=== PATIENT | male | born 1985 | race Caucasian/White ===

== ENCOUNTER 2022-07-06 18:13 | Emergency (ER) | payer OTHER, SELFPAY ==
[2022-07-06 18:16] VITALS: BP 158/100; PULSE 70; RESP 20; TEMP 36.3; O2SAT 99; BMI 29.8
--- NOTE | 2022-07-06 18:40 | CRLHL7_ITS ---
For Patients: As a result of the Cures Act, medical imaging exams and procedure reports are released immediately into your electronic medical record. You may view this report before your referring provider. If you have questions, please contact your health care provider. INDICATION: Chest pain. TECHNIQUE: Chest 2 views. COMPARISON: None. FINDINGS: Lungs: Clear lungs. No consolidation. Pleura: No pleural effusion or pneumothorax. Heart and Mediastinum: The cardiomediastinal silhouette is normal. The vessels are unremarkable. Bones: Unremarkable. IMPRESSION: No acute cardiopulmonary disease. Dictated by Miguel Delvalle MD @ 07/06/2022 7:26:18 PM (Electronically Signed)
--- NOTE | 2022-07-06 18:51 | ED.CHESTPAIN ---
HPI - Chest Pain General Date Seen: 07/06/22 Chief Complaint: Chest Pain Stated Complaint: Chest and Abdominal pain Time Seen by Provider: 07/06/22 18:29 Source: patient Mode of arrival: ambulatory Limitations: no limitations History of Present Illness HPI narrative: Patient is a 36-year-old gentleman who presents here with chest pain initially went to Urgent Care was triaged over to here, he has had the pain now on off for the past week and half, he says he notices it when he is actually not doing anything, he may have it when he is exerting himself he just does not notice it, he describes as a dull sensation in his chest area, he has also had abdominal issues he said during this time period, which is not uncommon for him. He has a history of hemorrhoids and has had a couple bowel movements worries had a little blood within it. Denies any fevers chills or sweats associated with this there is no radiation of his discomfort he feels his chest pain just sub externally. There is no coughing, splinting, pleuritic type discomfort associated with this he has had no leg swelling. Eating does nothing for this, he did try some antacids but did not really work at all he has been using some ibuprofen for the last couple days because his told him that that should help. Does smoke irregularly, no history of any illicit drug use, no history of premature coronary artery disease in the family, denies a history of hypertension diabetes or hyperlipidemia. Treatment prior to arrival: none Risk Factors Coronary artery disease risk factors: smoking history Thoracic aortic dissection risk factors: none Related Data Home Medications Medication Instructions Recorded Confirmed No Known Home Medications 07/06/22 07/06/22 Allergies Allergy/AdvReac Type Severity Reaction Status Date / Time No Known Drug Allergies Allergy Verified 07/06/22 18:21 Review of Systems Status of ROS Reports: 10 or more systems reviewed and unremarkable except as noted in History and below PFSH PFS Social History Smoking Status: Former smoker What tobacco products do you use: cigarettes Smoking quit date/years: <= 15 years ago Do you use any of these nicotine containing products: None Second hand tobacco smoke exposure: No How often do you have a drink containing alcohol: 2-3 times a week How many standard drinks containing alcohol do you have on a typical day: 5 or 6 How often do you have six or more drinks on one occasion: Monthly AUDIT-C Alcohol total score: 7 Non-prescribed substance use: denies use Exam Narrative Exam Narrative: Patient is seen in room 2 he is in no apparent distress his pupils are equal round reactive to light there is no scleral icterus redness TMs bilaterally are normal oropharynx is normal, neck is supple full range of motion, JVP is flat with normal carotid upstrokes, cranial nerves 3-12 are otherwise normal. Chest is clear bilaterally with easy respirations there is no splinting, no extra sounds, cardiac exam shows normal S1-S2 there is no S3-S4 clicks murmurs or gallops his abdomen is soft and slightly obese there is no guarding no organomegaly, no hernias, bowel sounds are normal, no CVA tenderness, moves all extremities independently and well with normal pulses in his lower extremities, no edema, negative Homans sign. Neurologically moves his extremities well, symmetrical strength, and normal proximal distal strength skin reveals no petechiae rashes Const Vital Signs, click to edit/add: Vital Signs - 24 hr 07/06/22 18:16 07/06/22 21:00 Temperature 97.3 F L Pulse Rate [Left Pulse Oximeter] 70 63 Respiratory Rate 20 16 Blood Pressure [Right Upper Arm] 158/100 H 112/99 H Pulse Oximetry 99 97 Oxygen Delivery Method Room Air Room Air Documenting provider has reviewed patient's vital signs: yes Course Course Hospital Course: Second troponin is normal his EKG shows no acute changes, his pain remained the same, I do think that this is related to likely GE reflux he tells me is a history of the reflux in the past but does not quite remember it being like this. Take my suspicion of cardiac cause is low although not 0, but given the above testing that we have done I think home use of omeprazole and follow-up with primary care is reasonable. Vital Signs Vital signs: Initial Vital Signs Temperature 97.3 F L 07/06/22 18:16 Temperature Source Temporal Artery Scan 07/06/22 18:16 Pulse Rate 70 07/06/22 18:16 Pulse Rhythm 07/06/22 18:16 Pulse Strength 3+ Normal 07/06/22 18:16 Respiratory Rate 20 07/06/22 18:16 Blood Pressure 158/100 H 07/06/22 18:16 Blood Pressure Mean 119 07/06/22 18:16 Blood Pressure Position Sitting 07/06/22 18:16 Pulse Oximetry 99 07/06/22 18:16 Oxygen Delivery Method 07/06/22 18:16 Vital Signs Temperature 97.3 F L 07/06/22 18:16 Pulse Rate 70 07/06/22 18:16 Respiratory Rate 20 07/06/22 18:16 Blood Pressure 158/100 H 07/06/22 18:16 Pulse Oximetry 99 07/06/22 18:16 Oxygen Delivery Method 07/06/22 18:16 Temperature 97.3 F L 07/06/22 18:16 Pulse Rate 63 07/06/22 21:00 Respiratory Rate 16 07/06/22 21:00 Blood Pressure 112/99 H 07/06/22 21:00 Pulse Oximetry 97 07/06/22 21:00 Oxygen Delivery Method 07/06/22 21:00 MDM - Chest Pain MDM Narrative Medical decision making narrative: During the evaluation of this patient I considered multiple differential diagnosis is. The life-threatening differential diagnosis include coronary disease/WV, pulmonary embolism, pneumothorax, pneumonia, and aortic dissection. Other differential diagnosis included but were not limited to pericarditis, myocarditis, chest wall pain, GERD, esophageal rupture, rib fracture contusion, pleurisy, as well as other etiologies. Medical Records Data Attestation: I reviewed the patient's medical records. Lab Data Attestation: I reviewed the patient's lab results. Labs: Lab Results 07/06/22 07/06/22 07/06/22 Range/Units 18:55 18:55 18:55 WBC 7.62 (4.50-11.00) K/uL RBC 5.38 (4.30-5.90) m/uL Hgb 15.5 (13.5-17.5) gm/dL Hct 45.6 (37.0-53.0) % MCV 85 (80-100) fL MCH 29 (26-34) pg MCHC 34 (32-36) gm/dL RDW Coeff of Jesse 12.9 (11.5-15.5) % Plt Count 230 (140-440) K/uL Neut % (Auto) 63.0 (42.0-72.0) % Lymph % (Auto) 26.6 (20-44) % [place] % (Auto) 5.2 (0.0-11.0) % Eos % (Auto) 4.2 (0.0-7.0) % Baso % (Auto) 0.7 (0.0-3.0) % Neut # (Auto) 4.80 (1.7-7.0) K/uL Lymph # (Auto) 2.03 (0.90-2.90) K/uL [place] # (Auto) 0.40 (0.00-0.90) K/UL Eos # (Auto) 0.32 (0.00-0.50) K/uL Baso # (Auto) 0.05 (0.00-0.30) K/uL Abs Immat Gran (auto) 0.02 (0.00-0.30) K/uL INR 0.97 (0.91-1.10) APTT 31 (23-33) Seconds D-Dimer Quant (PE/DVT) 0.24 (0.00-0.50) ug/ml Sodium (135-149) mmol/L Potassium (3.6-5.1) mmol/L Chloride (96-114) mmol/L Carbon Dioxide (20-32) mmol/L BUN (5-24) mg/dL Creatinine (0.5-1.5) mg/dL Estimated Creat Clear Estimated GFR ml/min Glucose (60-115) mg/dL Calcium (8.4-10.6) mg/dL Total Bilirubin (0.1-1.5) mg/dL Direct Bilirubin (0.0-0.5) mg/dL AST (12-35) U/L ALT (4-50) U/L Alkaline Phosphatase (40-150) U/L NT-Pro-B Natriuret Pep (0-125) PG/mL Total Protein (6.0-8.3) g/dL Albumin (3.3-5.0) g/dL Amylase (18-89) U/L Lipase (23-300) U/L POC Troponin I (0.01-0.04) ng/ml 07/06/22 07/06/22 07/06/22 Range/Units 18:55 18:55 21:00 WBC (4.50-11.00) K/uL RBC (4.30-5.90) m/uL Hgb (13.5-17.5) gm/dL Hct (37.0-53.0) % MCV (80-100) fL MCH (26-34) pg MCHC (32-36) gm/dL RDW Coeff of Jesse (11.5-15.5) % Plt Count (140-440) K/uL Neut % (Auto) (42.0-72.0) % Lymph % (Auto) (20-44) % [place] % (Auto) (0.0-11.0) % Eos % (Auto) (0.0-7.0) % Baso % (Auto) (0.0-3.0) % Neut # (Auto) (1.7-7.0) K/uL Lymph # (Auto) (0.90-2.90) K/uL [place] # (Auto) (0.00-0.90) K/UL Eos # (Auto) (0.00-0.50) K/uL Baso # (Auto) (0.00-0.30) K/uL Abs Immat Gran (auto) (0.00-0.30) K/uL INR (0.91-1.10) APTT (23-33) Seconds D-Dimer Quant (PE/DVT) (0.00-0.50) ug/ml Sodium 138 (135-149) mmol/L Potassium 4.0 (3.6-5.1) mmol/L Chloride 103 (96-114) mmol/L Carbon Dioxide 26 (20-32) mmol/L BUN 17 (5-24) mg/dL Creatinine 0.9 (0.5-1.5) mg/dL Estimated Creat Clear 124.54 Estimated GFR 114 ml/min Glucose 90 (60-115) mg/dL Calcium 9.1 (8.4-10.6) mg/dL Total Bilirubin 0.5 (0.1-1.5) mg/dL Direct Bilirubin 0.1 (0.0-0.5) mg/dL AST 33 (12-35) U/L ALT 32 (4-50) U/L Alkaline Phosphatase 71 (40-150) U/L NT-Pro-B Natriuret Pep 54 (0-125) PG/mL Total Protein 7.3 (6.0-8.3) g/dL Albumin 4.7 (3.3-5.0) g/dL Amylase 114 H (18-89) U/L Lipase 145 (23-300) U/L POC Troponin I 0.00 L 0.00 L (0.01-0.04) ng/ml Imaging Data Chest x-ray: Attestation: I have reviewed the pertinent imaging results. Radiologist's impression: Patient: ADALID TALAVERA Facility: [facility] Site . Site : 1985 Study: XRay Chest 2 view-07/06/2022 7:16:47 PM Ordering Physician: Cherelle Coto Final Report: INDICATION: Chest pain. TECHNIQUE: Chest 2 views. COMPARISON: None. FINDINGS: Lungs: Clear lungs. No consolidation. Pleura: No pleural effusion or pneumothorax. Heart and Mediastinum: The cardiomediastinal silhouette is normal. The vessels are unremarkable. Bones: Unremarkable. IMPRESSION: No acute cardiopulmonary disease. Dictated by Miguel Delvalle MD @ 07/06/2022 7:26:18 PM (Electronic Signature) ECG Data Attestation: I personally reviewed and interpreted this ECG as follows: ECG interpretation date: 07/06/22 Prior ECG tracings: not available for review Interpretation: EKG shows normal sinus rhythm with incomplete right bundle-branch block, sinus rhythm at 64, no acute ST wave changes. Discharge Plan Discharge Clinical Impression: Chest pain Patient Disposition: Home, Self-Care Condition: Stable Instructions: Chest Pain (ED) Additional Instructions: Home rest reassurance given, follow-up with primary care if ongoing symptoms I would suggest a stress test, but I really truly think this is more likely GI, omeprazole 20 mg a day also known as Prilosec is [id number], please take this for the next 4 weeks. Return here if increasing chest pain shortness of breath or other symptoms Prescriptions: No Action No Known Home Medications Follow Up/Referrals: Ruy Julien MD [Primary Care Provider] - Stand Alone Forms: [employer] Info Instructions
[2022-07-06 19:04] LABS: Basophils Absolute Auto 0.05 K/uL (0.00-0.30); Basophils Percent Auto 0.7 % (0.0-3.0); Eosinophils Absolute Auto 0.32 K/uL (0.00-0.50); Eosinophils Percent Auto 4.2 % (0.0-7.0); Hematocrit 45.6 % (37.0-53.0); Hemoglobin* 15.5 gm/dL (13.5-17.5); Immature Granulocytes Abs Auto 0.02 K/uL (0.00-0.30); Lymphocytes Absolute Auto 2.03 K/uL (0.90-2.90); Lymphocytes Percent Auto 26.6 % (20-44); Mean Corpuscular HGB Conc 34 gm/dL (32-36); Mean Corpuscular Hemoglobin 29 pg (26-34); Mean Corpuscular Volume 85 fL (80-100); Monocytes Percent Auto 5.2 % (0.0-11.0); Platelet Count* 230 K/uL (140-440); RDW Coefficient of Variation % 12.9 % (11.5-15.5); Red Blood Count 5.38 m/uL (4.30-5.90); White Blood Count* 7.62 K/uL (4.50-11.00)
[2022-07-06 19:08] LABS: Slide Review Reflex No
[2022-07-06] MEDS: ASPIRIN 81 MG TAB.CHEW 324 MG PO (19:10)
[2022-07-06] MEDS: PANTOPRAZOLE SODIUM 40 MG INJ IVP (19:14)
[2022-07-06 19:17] LABS: Albumin* 4.7 g/dL (3.3-5.0); Chloride* 103 mmol/L (96-114); Sodium* 138 mmol/L (135-149)
[2022-07-06 19:19] LABS: Amylase* 114 U/L (18-89)
[2022-07-06 19:20] LABS: Alanine Aminotransferase* 32 U/L (4-50); Alkaline Phosphatase* 71 U/L (40-150); Aspartate Amino Transferase* 33 U/L (12-35); Bilirubin Direct* 0.1 mg/dL (0.0-0.5); Bilirubin Total* 0.5 mg/dL (0.1-1.5); Blood Urea Nitrogen* 17 mg/dL (5-24); Calcium* 9.1 mg/dL (8.4-10.6); Carbon Dioxide* 26 mmol/L (20-32); Creatinine* 0.9 mg/dL (0.5-1.5); Est. Creatinine Clearance* 124.54; Estimated Glomerular Filt Rate 114 ml/min; Glucose* 90 mg/dL (60-115); Lipase* 145 U/L (23-300); Total Protein* 7.3 g/dL (6.0-8.3)
[2022-07-06 19:21] LABS: INR 0.97 (0.91-1.10); Partial Thromboplastin Time* 31 Seconds (23-33); Prothrombin Time 13.5 Seconds
[2022-07-06 19:26] LABS: D Dimer Quantitative* 0.24 ug/ml (0.00-0.50)
[2022-07-06 19:29] LABS: NT Pro B Type NatriureticPept* 54 PG/mL (0-125)
[2022-07-06 21:00] VITALS: BP 112/99; PULSE 63; RESP 16; O2SAT 97
--- NOTE | 2022-07-06 21:15 | ED.NURSE ---
second trop 0.00
== END 2022-07-06 21:21 | disposition home or self-care (01) ==
PROVIDERS: Emergency Provider Family Medicine; PCP Family Medicine
DX: R07.9 Chest pain, unspecified (principal)
CPT/HCPCS: 36415; 71046; 80048; 80076; 82150; 83690; 83880; 85025; 85379; 85610; 85730; 93005; 96374; 99285; A9270; C9113

== ENCOUNTER 2022-07-26 07:49 | Outpatient (CLI) | payer OTHER, SELFPAY ==
--- NOTE | 2022-07-26 08:00 | CRLHL7_ITS ---
For Patients: As a result of the Century Cures Act, medical imaging exams and procedure reports are released immediately into your electronic medical record. You may view this report before your referring provider. If you have questions, please contact your health care provider. Indication: Abdominal pain Technique: Postcontrast CT abdomen and pelvis. 114 cc Isovue 370 intravenous contrast. Please note that all CT scans at this facility use dose modulation, iterative reconstruction, and/or weight-based dosing when appropriate to reduce radiation dose to as low as reasonably achievable. Comparison: None Findings: Lung bases clear. No pleural effusion or infiltrate. Normal liver and gallbladder. Normal spleen and pancreas. Normal adrenal glands and kidneys. Normal ureters. No abdominal or pelvic adenopathy. Bladder normal. No bowel obstruction or free air. No abscess. Appendix normal. Trace pelvic free fluid is present. The small bowel appears normal. No abdominal wall hernia. Physiologic wedging L1. Impression: Trace nonspecific pelvic free fluid. No adjacent inflammatory changes regarding the large or small bowel. This may represent sequela of mild enteritis. Normal terminal ileum and appendix. No evidence of diverticulitis or appendicitis. No evidence of gallbladder disease or renal stone. Please note that all CT scans at this facility use dose modulation, iterative reconstruction, and/or weight-based dosing when appropriate to reduce radiation dose to as low as reasonably achievable. Dictated by Ruy Zurita MD @ 07/26/2022 10:18:30 AM (Electronically Signed)
== END 2022-07-26 07:50 | disposition home or self-care (01) ==
PROVIDERS: PCP Family Medicine; Visit Provider Family Medicine
DX: R10.9 Unspecified abdominal pain (principal)
CPT/HCPCS: 74177; Q9967

== ENCOUNTER 2023-01-16 06:23 | Day surgery (SDC) | payer OTHER, SELFPAY ==
[2023-01-16] VITALS (11 sets, daily range): BP systolic 129–146; BP diastolic 84–98; PULSE 55–70; RESP 14–16; TEMP 36.6; O2SAT 96–100; BMI 30.7
[2023-01-16] MEDS: lidocaine HCL 2 % MULTIDOSE 20 ML VIAL 2.5 ML INJECTION (07:32)
[2023-01-16] MEDS: BUPIVACAINE 0.5 % 10 ML VIAL 2.5 ML INJECTION (07:32)
--- NOTE | 2023-01-16 07:59 | P.ORPRC_ITS ---
Procedure Note Date of procedure: 01/16/23 Procedure: Preop diagnosis: Left wrist dorsal, radial ganglion cyst Postop diagnosis: Left wrist dorsal, radial ganglion cyst Procedure: Ganglion excision Anesthesia: Local Surgeon: Andre Tobias MD certified medical technician assistant: JARRED Bauman EBL: 0 mL Complications: None Specimens: None Drains: None Indications: The patient has a history of a left wrist painful dorsal, radial mass consistent with a ganglion cyst. It appears to be intimately associated with the EPL tendon. Despite appropriate nonoperative management they continue to have symptoms. Operative intervention was offered. The risks, benefits alternatives and expected outcomes were discussed in detail. These included but were not limited to: Infection, bleeding, injury to blood vessel or nerve, venous thromboembolism. All questions were answered to their satisfaction. The patient was placed supine on the operating room table. Local anesthesia was administered. The hand was prepped and draped in usual sterile fashion. The limb was elevated. The forearm pneumatic tourniquet was inflated to 250 mm of mercury. A transverse incision was made over the dorsal, radial aspect of the wrist, centered over the mass. Subcutaneous dissection was taken with the tenotomy scissors to the ganglion. The radial sensory nerve was encountered and retracted ulnarly, protected throughout the case. The ganglion was entered and clear, gelatinous fluid was encountered. It appeared to be emanating from EPL tendons. There were 2 distinct slips of tendon. It was carefully dissected off of the tendons with the tenotomy scissors and was resected in its entirety. The wound was thoroughly inspected and there was not a stalk emanating from the wrist joint. The wound was irrigated with normal saline. It was closed with a 3-0 Stratafix and glue. A dry dressing and short-arm thumb spica splint were applied. Sponge and needle counts were correct x 2. The patient tolerated the procedure well, there were no apparent complications. They were sent to same day surgery in satisfactory condition. Plan: Use of the hand as tolerates. Discontinue the intraoperative dressing on postoperative day 3 and may get the wound wet as tolerates. Follow up in the office in 1-2 weeks for a wound check and suture removal.
== END 2023-01-16 08:18 | disposition home or self-care (01) ==
LOC: OR 06:23
PROVIDERS: PCP Family Medicine; Visit Provider Orthopaedic Surgery
PROC: (CPT 25111; principal; 2023-01-16 07:15)
DX: M67.432 Ganglion, left wrist (principal)
CPT/HCPCS: 25111; A4580; S0020

== ENCOUNTER 2024-02-14 09:00 | Outpatient (RCR) | payer OTHER, SELFPAY | END 2024-04-09 08:01 | disposition home or self-care (01) | PROVIDERS: PCP Family Medicine | DX: S83.231A Complex tear of medial meniscus, current injury, right knee, initial encounter (principal); Z51.89 Encounter for other specified aftercare | CPT/HCPCS: 97110; 97112; 97161; 97530 ==

== ENCOUNTER 2025-07-17 12:52 | Emergency (ER) | payer OTHER, SELFPAY ==
--- OUTSIDE RECORDS SUMMARY | 2025-07-17 12:55 | XMS_ITS | Clinical Summary ---
[facility] Address [address], [place] [address] Care Team Providers Care A And P Mechanic Name Role Phone Clinician, Not Found MD Primary Care Provider Un available Source Comments You are receiving this document as you are listed as the primary care provider,follow-up provider, or the patient has been referred to you for consultation.This is in compliance with the Medicare and[facility] EHR Incentive Program,which states Providers who transition their patient to another setting of careor provider of care or refers their patient to another provider of care shouldprovide summary care record for each transition of care or referral. [facility] [employer] Allergies No known active allergies Medications ibuprofen (MOTRIN) 200 MG tablet Take 2-3 Tablets (400-600 mg) by mouth every 6 hours as needed for Pain. 60 Tablet 1 01/03/2024 Active Active Problems Problem Noted Date Diagnosed Date Obesity, Class I, BMI 30-34.9 12/27/2023 Elevated blood pressure read ing without diagnosis of hypertension 12/27/2023 Complex tear of medial menis cus of right knee as current injury 12/26/2023 Immunizations Immunization Administration Dates Next Due Influenza (Flucelvax), Preserv Free QIV 09/09/20 19 Influenza, Unspecified Formulation 07/12/2013 Moderna Monovalent 12+ 01/14/2021,12/15/2020 Tdap 06/02/2016 Social History Tobacco Use Types Packs/Day Years Used Date Smoking Tobacco: Never Tobacco Cessation:Counseling Given: Not Answered Alcohol Use Standard Drinks/Week Comments Yes 0 (1 standard drink = 0.6 oz pur e alcohol) occ Humiliation, Afraid, Rape, a nd Kick questionnaire Answer Date Recorded Fear of Current or Ex-Partner Not on file Emotionally Abused Not on file 01/03/2024 Within the last year, have y ou been kicked, hit, slapped, or otherwise physically hurt by your partner or ex-partner? Patient unable to answer 01/03/2024 Within the last year, have y ou been raped or forced to have any kind of sexual activity by your partner or ex-partner? Patient unable to answer 01/03/2024 PHQ-2 Answer Date Recorded PHQ-2 Score 0 12/27/2023 Sex and Gender Information Value Date Recorded Sex Assigned at Not on file Legal Sex Male 4:48 AM CDT Gender Identity Not on file Sexual Orientation Not on file Last Filed Vital Signs Vital Sign Reading Time Taken Comments Blood Pressure 132/95 01/03/2024 3:15 PM CDT Pulse 60 01/03/2024 3:23 PM CDT Temperature 36.5 C (97.7 F) 01/03/2024 2:32 PM CDT Respiratory Rate 16 01/03/2024 3:23 PM CDT Oxygen Saturation 96% 01/03/2024 3:23 PM CDT Inhaled Oxygen Concentration - - Weight 108 kg (238 lb) 12/27/2023 9:48 AM CDT Height 180.3 cm (5' 11) 12/27/2023 9:48 AM CDT Body Mass Index 33.19 12/27/2023 9:48 AM CDT Plan of Treatment Health Maintenance Due Date Last Done Comments Hep C Screening (Preventive Services) 1985 HIV Screening (Preventive Services) 2001 Adult Preventive Visit 2003 HepB Vaccine (1) 2004 HPV Vaccine (1 - 3-dose SCDM series) 2012 Cholesterol 2020 COVID-19 Vaccine (3 - 2024-2 6 season) 2025 01/14/2021, 12/15/2020 Influenza Vaccine (#1) 2025 9, 07/12/2013 DTaP/Tdap/Td Vaccine (2 - Tdap) 06/02/2026 06/02/2016 Zoster/Shingles Vaccine (1 o f 2) 2035 HepA Vaccine Aged Out No longer eligi ble based on patient's age to complete this topic Hib Vaccine Aged Out No longer eligi ble based on patient's age to complete this topic IPV (Polio) Vaccine Aged Out No longe r eligible based on patient's age to complete this topic MCV4 Vaccine Aged Out No longer eligi ble based on patient's age to complete this topic Meningococcal B Vaccine Aged Out No l onger eligible based on patient's age to complete this topic Pneumococcal Vaccine Aged Out No long er eligible based on patient's age to complete this topic Insurance SELF INSURED * Guarantor: LUIS ALBERTO TALAVERA Account Type Relation to Patient Date of Phone Billing Address Personal/Family [phone] [facility], [phone] Advance Directives * Full Code (Latest Code Status on File) Date Activated Date Inactivated Comments 01/03/2024 12:56 PM 01/03/2024 5:41 PM Care Teams A And P Mechanic Relationship Specialty Start Date End Date Clinician, Not Found, [place] [address] PCP - General 12/24/23
--- OUTSIDE RECORDS SUMMARY | 2025-07-17 12:55 | XMS_ITS | Encounter Summary ---
Author Organization [facility] Address [address] [address] Care Team Providers Care Electric Motor Tester Assembler Name Role Phone Clinician, Not Found MD Primary Care Provider Un available Encounter Details Date Type Department Care Team (Late st Contact Info) Description 02/27/2025 Notes/Orders [facility] [id number] [place] [address] [place] [id number] [place] [address] Social History Tobacco Use Types Packs/Day Years Used Date Smoking Tobacco: Never Alcohol Use Standard Drinks/Week Comments Yes 0 [...] on file Sexual Orientation Not on file documented as of this encounter Plan of Treatment Not on file documented as of this encounter Visit Diagnoses Not on filedocumented in this encounter Care Teams Electric Motor Tester Assembler Relationship Specialty Start Date End Date Clinician, Not Found, [facility] [place] [address] PCP - General 12/24/23 documented as of this encounter
[2025-07-17 13:07] VITALS: BP 166/108; PULSE 98; RESP 22; TEMP 36.6; O2SAT 99; BMI 31.4
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
[2025-07-17 13:48] LABS: Appearance Urine Clear (Clear)
[2025-07-17 13:54] LABS: Hematocrit* 49.1 % (37.0-53.0); Hemoglobin* 16.6 gm/dL (13.5-17.5); Immature Granulocytes Abs Auto 0.02 K/uL (0.00-0.30); Immature Granulocytes Pct Auto 0.3 %; Mean Corpuscular HGB Conc 34 gm/dL (32-36); Mean Corpuscular Hemoglobin 29 pg (26-34); Mean Corpuscular Volume 85 fL (80-100); RDW Coefficient of Variation % 12.6 % (11.5-15.5); Red Blood Count* 5.80 m/uL (4.30-5.90); White Blood Count* 6.83 K/uL (4.50-11.00)
[2025-07-17 13:55] LABS: Lymphocytes Absolute Auto 1.10 K/uL (0.90-2.90); Slide Review Reflex No
[2025-07-17 14:11] LABS: Albumin* 4.8 g/dL (3.3-5.0)
[2025-07-17 14:12] LABS: Chloride* 100 mmol/L (96-114); Potassium* 4.1 mmol/L (3.6-5.1); Sodium* 140 mmol/L (135-149)
[2025-07-17 14:14] LABS: Alanine Aminotransferase* 37 U/L (4-50); Anion Gap 13 mEq/L (7-15); Aspartate Amino Transferase* 36 U/L (12-35); Blood Urea Nitrogen* 13 mg/dL (5-24); Carbon Dioxide* 27 mmol/L (20-32); Creatinine* 0.9 mg/dL (0.5-1.5); Est. Creatinine Clearance* 117.37; Estimated Glomerular Filt Rate 111 ml/min
[2025-07-17 14:15] LABS: Alkaline Phosphatase* 70 U/L (40-150); Bilirubin Direct* 0.3 mg/dL (0.0-0.5); Bilirubin Total* 0.8 mg/dL (0.1-1.5); Calcium* 9.6 mg/dL (8.4-10.6); Creatine Kinase* 179 U/L (54-186); Glucose* 101 mg/dL (60-115); Total Protein* 7.8 g/dL (6.0-8.3)
== END 2025-07-17 14:54 | disposition home or self-care (01) ==
PROVIDERS: Emergency Provider Family Medicine; PCP Family Medicine
DX: M25.511 Pain in right shoulder (principal); W86.1XXA Exposure to industrial wiring, appliances and electrical machinery, initial encounter; T75.4XXA Electrocution, initial encounter; Y99.0 Civilian activity done for income or pay
CPT/HCPCS: 36415; 80048; 80076; 81001; 82550; 84484; 85025; 87086; 93005; 94761; 99284